=== PATIENT | female | born 1955 | race Caucasian/White ===

== ENCOUNTER 2018-01-16 18:00 | Inpatient (IN) | payer MEDICAID ==
[~2018-01-16] VITALS: Ht 160 cm; Wt 108.9 kg
[~2018-01-16 18:00] MED LIST: ASPI-1159 PO; ATOR40TA70 PO; CLON2TAB21 PO; FAMO20TA8 PO; FURO40TA5 PO; LEVO50TA PO; PANT40TA4 PO; SPIR50TA5 PO; SUCR1TAB PO
[2018-01-16] MEDS ORDERED: KETOROLAC 30MG/ML VIAL IV ONE (18:45)
[2018-01-16] MEDS ORDERED: ONDANSETRON HCL 4MG/2ML INJ IV ONE (18:45)
[2018-01-16 20:21] LABS: BASOPHILS % 0.7 % (0.0-2.0); EOSINOPHILS % 3.9 % (0.0-5.0); HEMATOCRIT. 36.7 % (36.0-48.0); HEMOGLOBIN. 12.4 g/dL (12.0-16.0); LYMPHOCYTES % 28.5 % (20.0-50.0); MEAN CORPUSCULAR HEMOGLOBIN 30.3 pg (28.0-32.0); MEAN CORPUSCULAR VOLUME 89.5 fL (81.0-99.0); MEAN PLATELET VOLUME 8.7 fl (7.4-10.4); MONOCYTES % 8.6 % (2.0-8.0); NEUTROPHILS % 58.3 % (40.0-76.0); PLATELET 214 x1000/uL (130-400); RED CELL DISTRIBUTION WIDTH 14.1 % (11.6-14.6)
[2018-01-16 20:27] LABS: CHLORIDE 108 mEq/L (98-107)
[2018-01-16 20:42] LABS: CLARITY URINE CLEAR (CLEAR); COLOR URINE YELLOW (YELLOW); KETONES URINE NEGATIVE (NEGATIVE); LEUKOCYTE ESTERASE URINE TRACE (NEGATIVE); NITRITE URINE NEGATIVE (NEGATIVE); OCCULT BLOOD URINE NEGATIVE (NEGATIVE); PH URINE 5.5 (4.5-8.0); PROTEIN URINE NEGATIVE (NEGATIVE); SPECIFIC GRAVITY URINE 1.002 (1.005-1.030); UROBILINOGEN URINE 0.2 E.U./dL (0.2-1.0)
[2018-01-16] MEDS ORDERED: GUAIFENESIN 200MG/10ML SUGAR FREE UDC PO PRN (21:45)
[2018-01-16] MEDS ORDERED: CLONIDINE 0.1MG TABLET PO PRN (21:45)
[2018-01-16] MEDS ORDERED: IPRATROPIUM/ALBUTEROL 0.5-3(2.5)MG/3ML NEB INH PRN (21:45)
[2018-01-16] MEDS ORDERED: ACETAMINOPHEN 325MG TABLET PO PRN (21:45)
[2018-01-16] MEDS ORDERED: ONDANSETRON HCL 4MG/2ML INJ IV PRN (21:45)
[2018-01-16] MEDS ORDERED: MAGNESIUM/ALUMINUM HYDROXIDE/SIMETHICONE 30ML UDC PO PRN (21:45)
[2018-01-16] MEDS ORDERED: HYDROCODONE/ACETAMINOPHEN 5/325MG TABLET PO PRN (21:45)
[2018-01-16] MEDS ORDERED: DOCUSATE SODIUM 100MG CAPSULE PO PRN (21:45)
[2018-01-16 23:13] LABS: CHLORIDE 107 mEq/L (98-107)
[2018-01-16 23:19] LABS: CREATINE KINASE 43 IU/L (26-192)
[2018-01-16 23:20] LABS: CREATINE KINASE MB FRACTION < 1.0 ng/mL (0.5-3.6)
[2018-01-17] VITALS (7 sets, daily range): BP systolic 99–126; BP diastolic 45–72
[2018-01-17] MEDS ORDERED: ASPIRIN 81MG EC TABLET PO SCH (09:00)
[2018-01-17 09:24] LABS: BASOPHILS % 0.6 % (0.0-2.0); EOSINOPHILS % 5.1 % (0.0-5.0); HEMATOCRIT. 36.6 % (36.0-48.0); HEMOGLOBIN. 12.1 g/dL (12.0-16.0); LYMPHOCYTES % 27.7 % (20.0-50.0); MEAN CORPUSCULAR HEMOGLOBIN 29.8 pg (28.0-32.0); MEAN CORPUSCULAR VOLUME 90.1 fL (81.0-99.0); MEAN PLATELET VOLUME 8.8 fl (7.4-10.4); MONOCYTES % 8.7 % (2.0-8.0); NEUTROPHILS % 57.9 % (40.0-76.0); PLATELET 198 x1000/uL (130-400); RED BLOOD CELL COUNT 4.07 mill/uL (4.2-5.4); RED CELL DISTRIBUTION WIDTH 14.1 % (11.6-14.6)
[2018-01-17 09:43] LABS: CREATINE KINASE 31 IU/L (26-192); CREATINE KINASE MB FRACTION < 1.0 ng/mL (0.5-3.6); HDL CHOLESTEROL 55 mg/dL (40-59); LDL CHOLESTEROL 44 mg/dL (5-100)
[2018-01-17] MEDS: ENOXAPARIN 30MG/0.3ML SYR SUBCUT SCH ×2 (09:46→20:50)
[2018-01-17 10:17] LABS: *AMPHETAMINES SCREEN URINE NEGATIVE (NEGATIVE); *BARBITURATES SCREEN URINE NEGATIVE (NEGATIVE); *BENZODIAZEPINES SCREEN URINE PRESUMTIVE POSITIVE (NEGATIVE)
[2018-01-17 10:18] LABS: *COCAINE SCREEN URINE NEGATIVE (NEGATIVE); CANNABINOID URINE SCREEN NEGATIVE (NEGATIVE); METHADONE URINE SCREEN NEGATIVE (NEGATIVE); OPIATES URINE SCREEN PRESUMTIVE POSITIVE (NEGATIVE); PHENCYCLIDINE URINE SCREEN NEGATIVE (NEGATIVE)
[2018-01-17] MEDS ORDERED: SPIRONOLACTONE 50MG TABLET PO SCH (11:30)
[2018-01-17 11:49] LABS: T4 FREE 1.14 ng/dL (0.76-1.46)
[2018-01-17] MEDS: FUROSEMIDE 40MG/4ML VIAL IVP SCH (11:51)
[2018-01-17] MEDS: SUCRALFATE 1G TABLET PO SCH ×3 (11:52→20:49)
[2018-01-17] MEDS: PANTOPRAZOLE 40MG DR TABLET PO SCH (11:52)
[2018-01-17] MEDS: SPIRONOLACTONE 50MG TABLET PO SCH (15:39)
[2018-01-17] MEDS ORDERED: DEXTROSE 50% WATER 50ML SYRINGE IV PRN (17:00)
[2018-01-17] MEDS: INSULIN LISPRO 100 UNITS/ML SUBCUT SCH ×2 (17:15→20:48)
[2018-01-17] MEDS: BLOOD SUGAR DIAGNOSTIC STRIP TEST SCH ×2 (17:39→20:48)
[2018-01-17] MEDS ORDERED: CLONAZEPAM 1MG TABLET PO PRN (19:15)
[2018-01-17] MEDS ORDERED: MEDICATION NOT ON FORMULARY EA (Clonazepam 2 MG) PO PRN (19:15)
[2018-01-17] MEDS ORDERED: ATORVASTATIN CALCIUM 40MG TABLET PO SCH (21:00)
[2018-01-18] VITALS (8 sets, daily range): BP systolic 96–144; BP diastolic 56–70
[2018-01-18] MEDS: INSULIN LISPRO 100 UNITS/ML SUBCUT SCH ×3 (06:09→17:54)
[2018-01-18] MEDS: BLOOD SUGAR DIAGNOSTIC STRIP TEST SCH ×3 (06:09→17:30)
[2018-01-18] MEDS: SUCRALFATE 1G TABLET PO SCH ×3 (06:10→17:30)
[2018-01-18] MEDS: PANTOPRAZOLE 40MG DR TABLET PO SCH (06:10)
[2018-01-18] MEDS ORDERED: LEVOTHYROXINE SODIUM 50MCG TABLET PO SCH (06:45)
[2018-01-18 07:30] LABS: BASOPHILS % 0.7 % (0.0-2.0); EOSINOPHILS % 5.1 % (0.0-5.0); HEMATOCRIT. 38.9 % (36.0-48.0); HEMOGLOBIN. 12.8 g/dL (12.0-16.0); LYMPHOCYTES % 28.5 % (20.0-50.0); MEAN CORPUSCULAR HEMOGLOBIN 29.6 pg (28.0-32.0); MEAN CORPUSCULAR VOLUME 89.7 fL (81.0-99.0); MEAN PLATELET VOLUME 9.3 fl (7.4-10.4); MONOCYTES % 8.3 % (2.0-8.0); NEUTROPHILS % 57.4 % (40.0-76.0); PLATELET 206 x1000/uL (130-400); RED BLOOD CELL COUNT 4.33 mill/uL (4.2-5.4); RED CELL DISTRIBUTION WIDTH 14.1 % (11.6-14.6)
[2018-01-18 07:35] LABS: CHLORIDE 104 mEq/L (98-107)
[2018-01-18] MEDS: FUROSEMIDE 40MG/4ML VIAL IVP SCH (08:41)
[2018-01-18] MEDS: SPIRONOLACTONE 50MG TABLET PO SCH (08:42)
[2018-01-18] MEDS: ENOXAPARIN 30MG/0.3ML SYR SUBCUT SCH (08:43)
[2018-01-18] MEDS ORDERED: ASPIRIN 81MG TABLET PO SCH (09:00)
== END 2018-01-18 20:45 | disposition home or self-care (01) | DRG 194 ==
LOC: ER 18:14 → 5WST 21:14 → EDBEDREQTM 21:49 → EDBEDREQ 21:49 → ENRESERV 01-17 00:06
PROVIDERS: ADMIT Internal Medicine; ATTEND Internal Medicine
DX: I11.0 Hypertensive heart disease with heart failure (principal); E87.8 Other disorders of electrolyte and fluid balance, not elsewhere classified; E44.0 Moderate protein-calorie malnutrition; E66.01 Morbid (severe) obesity due to excess calories; I50.33 Acute on chronic diastolic (congestive) heart failure; E03.9 Hypothyroidism, unspecified; E78.5 Hyperlipidemia, unspecified; E11.9 Type 2 diabetes mellitus without complications; E78.00 Pure hypercholesterolemia, unspecified; R10.9 Unspecified abdominal pain; R11.0 Nausea; F41.9 Anxiety disorder, unspecified; R07.89 Other chest pain; Z79.82 Long term (current) use of aspirin; Z79.84 Long term (current) use of oral hypoglycemic drugs; Z87.11 Personal history of peptic ulcer disease; Z68.41 Body mass index [BMI] 40.0-44.9, adult; Z91.041 Radiographic dye allergy status; Z79.899 Other long term (current) drug therapy
CPT/HCPCS: 36415; 71045; 74176; 80048; 80061; 80305; 82550; 82553; 82962; 83735; 83880; 84439; 84443; 84481; 84484; 93005; 93970; 96374; 96375; 97116; 97162; 97530; 99285; C1893; J1650; J1815; J1885; J1940; J2405

== ENCOUNTER 2018-04-04 13:01 | Inpatient (IN) | payer MEDICAID ==
[~2018-04-04] VITALS: Ht 157.5 cm; Wt 97.5 kg
[~2018-04-04 13:01] MED LIST changes: -FAMO20TA8 PO
[2018-04-04] MEDS ORDERED: ONDANSETRON HCL 4MG/2ML INJ IV STA (13:42)
[2018-04-04] MEDS ORDERED: MORPHINE SULFATE 4 MG/ML CPJ (NOT FOR IM USE) IV STA (13:42)
[2018-04-04] MEDS ORDERED: MORPHINE SULFATE 10 MG/ML CPJ IV NR (14:45)
[2018-04-04 14:48] LABS: CHLORIDE 105 mEq/L (98-107)
[2018-04-04 14:49] LABS: BASOPHILS % 0.6 % (0.0-2.0); HEMATOCRIT. 43.5 % (36.0-48.0); HEMOGLOBIN. 14.6 g/dL (12.0-16.0); LYMPHOCYTES % 27.2 % (20.0-50.0); MEAN CORPUSCULAR HEMOGLOBIN 29.5 pg (28.0-32.0); MEAN CORPUSCULAR VOLUME 87.8 fL (81.0-99.0); MEAN PLATELET VOLUME 9.1 fl (7.4-10.4); MONOCYTES % 6.7 % (2.0-8.0); NEUTROPHILS % 61.5 % (40.0-76.0); PLATELET 210 x1000/uL (130-400); PROTHROMBIN TIME 10.3 sec (9.1-11.1); RED BLOOD CELL COUNT 4.96 mill/uL (4.2-5.4); RED CELL DISTRIBUTION WIDTH 15.1 % (11.6-14.6)
[2018-04-04 18:01] LABS: CLARITY URINE CLEAR (CLEAR); COLOR URINE YELLOW (YELLOW); KETONES URINE NEGATIVE (NEGATIVE); LEUKOCYTE ESTERASE URINE TRACE (NEGATIVE); NITRITE URINE NEGATIVE (NEGATIVE); OCCULT BLOOD URINE NEGATIVE (NEGATIVE); PH URINE 7.5 (4.5-8.0); PROTEIN URINE NEGATIVE (NEGATIVE); SPECIFIC GRAVITY URINE 1.008 (1.005-1.030); UROBILINOGEN URINE 0.2 E.U./dL (0.2-1.0)
[2018-04-04] MEDS ORDERED: MORPHINE SULFATE 10 MG/ML CPJ IV ONE (19:00)
[2018-04-04] MEDS ORDERED: CLONIDINE 0.1MG TABLET PO PRN (19:30)
[2018-04-04] MEDS ORDERED: ACETAMINOPHEN 325MG TABLET PO PRN (19:30)
[2018-04-04] MEDS ORDERED: IPRATROPIUM/ALBUTEROL 0.5-3(2.5)MG/3ML NEB INH PRN (19:30)
[2018-04-04 23:30] VITALS: BP 90/63
[2018-04-05] VITALS: BP 90/51
[2018-04-05 04:00] VITALS: BP 104/70
[2018-04-05 06:23] LABS: BASOPHILS % 0.4 % (0.0-2.0); EOSINOPHILS % 4.4 % (0.0-5.0); HEMOGLOBIN. 12.6 g/dL (12.0-16.0); LYMPHOCYTES % 32.7 % (20.0-50.0); MEAN CORPUSCULAR HEMOGLOBIN 29.6 pg (28.0-32.0); MEAN CORPUSCULAR VOLUME 89.3 fL (81.0-99.0); MEAN PLATELET VOLUME 8.8 fl (7.4-10.4); MONOCYTES % 8.8 % (2.0-8.0); NEUTROPHILS % 53.7 % (40.0-76.0); PLATELET 150 x1000/uL (130-400); RED BLOOD CELL COUNT 4.26 mill/uL (4.2-5.4); RED CELL DISTRIBUTION WIDTH 14.9 % (11.6-14.6)
[2018-04-05 06:36] LABS: CHLORIDE 107 mEq/L (98-107)
[2018-04-05 06:50] LABS: PHOSPHORUS 5.1 mg/dL (2.5-4.9)
[2018-04-05 06:51] LABS: LDL CHOLESTEROL 68 mg/dL (5-100)
[2018-04-05 06:53] LABS: HDL CHOLESTEROL 59 mg/dL (40-59)
[2018-04-05 10:18] LABS: *BARBITURATES SCREEN URINE NEGATIVE (NEGATIVE); *BENZODIAZEPINES SCREEN URINE PRESUMTIVE POSITIVE (NEGATIVE); *COCAINE SCREEN URINE NEGATIVE (NEGATIVE); METHADONE URINE SCREEN NEGATIVE (NEGATIVE); OPIATES URINE SCREEN PRESUMTIVE POSITIVE (NEGATIVE)
[2018-04-05 10:19] LABS: *AMPHETAMINES SCREEN URINE NEGATIVE (NEGATIVE); CANNABINOID URINE SCREEN NEGATIVE (NEGATIVE); PHENCYCLIDINE URINE SCREEN NEGATIVE (NEGATIVE)
[2018-04-05] MEDS ORDERED: TRAMADOL 50MG TABLET PO PRN (11:00)
[2018-04-05 12:00] VITALS: BP 98/51
[2018-04-05] MEDS: ONDANSETRON HCL 4MG/2ML INJ IV PRN ×2 (12:33→18:32)
[2018-04-05] MEDS: HYDROCODONE/ACETAMINOPHEN 5/325MG TABLET PO PRN ×2 (12:39→22:41)
[2018-04-05] MEDS: CLONAZEPAM 1MG TABLET PO SCH ×2 (14:25→22:40)
[2018-04-05] MEDS: PANTOPRAZOLE 40MG DR TABLET PO SCH (14:26)
[2018-04-05] MEDS: LEVOTHYROXINE SODIUM 50MCG TABLET PO SCH (14:26)
[2018-04-05] MEDS: SPIRONOLACTONE 50MG TABLET PO SCH (14:28)
[2018-04-05] MEDS: ASPIRIN 81MG TABLET PO SCH (14:29)
[2018-04-05] MEDS: FUROSEMIDE 40MG TABLET PO SCH (14:29)
[2018-04-05] MEDS: CYCLOBENZAPRINE 10MG TABLET PO SCH ×2 (14:34→22:49)
[2018-04-05] MEDS: SUCRALFATE 1 G/10 ML UDC PO SCH ×3 (14:34→22:40)
[2018-04-05 16:00] VITALS: BP 95/57
[2018-04-05 20:00] VITALS: BP 101/70
[2018-04-05] MEDS: ATORVASTATIN CALCIUM 40MG TABLET PO SCH (22:40)
[2018-04-06] VITALS: BP 100/52
[2018-04-06 04:00] VITALS: BP 101/60
[2018-04-06] MEDS: HYDROCODONE/ACETAMINOPHEN 5/325MG TABLET PO PRN ×3 (05:30→21:50)
[2018-04-06] MEDS: SUCRALFATE 1 G/10 ML UDC PO SCH ×4 (05:39→20:50)
[2018-04-06] MEDS: CYCLOBENZAPRINE 10MG TABLET PO SCH ×3 (05:40→21:50)
[2018-04-06] MEDS: LEVOTHYROXINE SODIUM 50MCG TABLET PO SCH (05:40)
[2018-04-06] MEDS: PANTOPRAZOLE 40MG DR TABLET PO SCH (05:40)
[2018-04-06 08:00] VITALS: BP 90/51
[2018-04-06 08:03] LABS: BASOPHILS % 0.8 % (0.0-2.0); EOSINOPHILS % 4.5 % (0.0-5.0); HEMATOCRIT. 41.6 % (36.0-48.0); HEMOGLOBIN. 13.6 g/dL (12.0-16.0); LYMPHOCYTES % 31.4 % (20.0-50.0); MEAN CORPUSCULAR HEMOGLOBIN 29.4 pg (28.0-32.0); MEAN CORPUSCULAR VOLUME 89.7 fL (81.0-99.0); MEAN PLATELET VOLUME 9.1 fl (7.4-10.4); MONOCYTES % 8.7 % (2.0-8.0); NEUTROPHILS % 54.6 % (40.0-76.0); PLATELET 186 x1000/uL (130-400); RED BLOOD CELL COUNT 4.64 mill/uL (4.2-5.4); RED CELL DISTRIBUTION WIDTH 15.2 % (11.6-14.6)
[2018-04-06] MEDS: ASPIRIN 81MG TABLET PO SCH (09:08)
[2018-04-06] MEDS: SPIRONOLACTONE 50MG TABLET PO SCH (09:08)
[2018-04-06] MEDS: CLONAZEPAM 1MG TABLET PO SCH ×2 (09:08→20:50)
[2018-04-06] MEDS: FUROSEMIDE 40MG TABLET PO SCH (09:10)
[2018-04-06 10:16] LABS: CHLORIDE 104 mEq/L (98-107)
[2018-04-06 12:40] VITALS: BP 98/53
[2018-04-06] MEDS ORDERED: DEXTROSE 50% WATER 50ML SYRINGE IV PRN (13:15)
[2018-04-06] MEDS ORDERED: MAGNESIUM HYDROXIDE 400MG/5ML 30ML UDC PO PRN (15:00)
[2018-04-06] MEDS ORDERED: BISACODYL 5MG TABLET PO PRN (15:00)
[2018-04-06 16:39] VITALS: BP 105/72
[2018-04-06] MEDS: BLOOD SUGAR DIAGNOSTIC STRIP TEST SCH ×2 (17:55→20:50)
[2018-04-06] MEDS: DOCUSATE SODIUM 100MG CAPSULE PO SCH (18:00)
[2018-04-06] MEDS: CEFTRIAXONE 1 G PREMIX 50 ML IV SCH (18:00)
[2018-04-06] MEDS: INSULIN LISPRO 100 UNITS/ML SUBCUT SCH ×2 (18:01→20:50)
[2018-04-06 20:00] VITALS: BP 101/60
[2018-04-06] MEDS: ATORVASTATIN CALCIUM 40MG TABLET PO SCH (20:49)
[2018-04-07] VITALS: BP 103/51
[2018-04-07 04:00] VITALS: BP 119/81
[2018-04-07] MEDS: HYDROCODONE/ACETAMINOPHEN 5/325MG TABLET PO PRN ×3 (04:04→17:16)
[2018-04-07] MEDS: LEVOTHYROXINE SODIUM 50MCG TABLET PO SCH (06:20)
[2018-04-07] MEDS: SUCRALFATE 1 G/10 ML UDC PO SCH ×4 (06:20→21:04)
[2018-04-07] MEDS: CYCLOBENZAPRINE 10MG TABLET PO SCH ×3 (06:20→21:19)
[2018-04-07] MEDS: BLOOD SUGAR DIAGNOSTIC STRIP TEST SCH ×4 (06:20→21:10)
[2018-04-07] MEDS: INSULIN LISPRO 100 UNITS/ML SUBCUT SCH ×4 (06:23→21:22)
[2018-04-07 08:00] VITALS: BP 143/97
[2018-04-07] MEDS: FUROSEMIDE 40MG TABLET PO SCH (09:13)
[2018-04-07] MEDS: SPIRONOLACTONE 50MG TABLET PO SCH (09:13)
[2018-04-07] MEDS: CLONAZEPAM 1MG TABLET PO SCH ×2 (09:13→21:03)
[2018-04-07] MEDS: ASPIRIN 81MG TABLET PO SCH (09:13)
[2018-04-07] MEDS: DOCUSATE SODIUM 100MG CAPSULE PO SCH ×2 (09:13→17:16)
[2018-04-07] MEDS: FAMOTIDINE 20MG TABLET PO SCH ×2 (09:13→21:03)
[2018-04-07 12:19] VITALS: BP 117/83
[2018-04-07 16:56] VITALS: BP 111/66
[2018-04-07] MEDS ORDERED: LACTULOSE 20G/30ML UDC PO PRN (17:15)
[2018-04-07] MEDS: CEFTRIAXONE 1 G PREMIX 50 ML IV SCH (17:16)
[2018-04-07 20:00] VITALS: BP 152/98
[2018-04-07] MEDS: KETOROLAC 30MG/ML VIAL IV PRN (21:03)
[2018-04-07] MEDS: ATORVASTATIN CALCIUM 40MG TABLET PO SCH (21:10)
[2018-04-08] VITALS: BP 107/72
[2018-04-08 04:00] VITALS: BP 102/62
[2018-04-08] MEDS: BLOOD SUGAR DIAGNOSTIC STRIP TEST SCH ×4 (06:34→21:36)
[2018-04-08] MEDS: INSULIN LISPRO 100 UNITS/ML SUBCUT SCH ×4 (06:34→21:39)
[2018-04-08] MEDS: CYCLOBENZAPRINE 10MG TABLET PO SCH ×3 (06:38→21:36)
[2018-04-08] MEDS: SUCRALFATE 1 G/10 ML UDC PO SCH ×4 (06:39→21:35)
[2018-04-08] MEDS: LEVOTHYROXINE SODIUM 50MCG TABLET PO SCH (06:40)
[2018-04-08 07:50] LABS: BASOPHILS % 0.5 % (0.0-2.0); EOSINOPHILS % 2.6 % (0.0-5.0); HEMATOCRIT. 43.7 % (36.0-48.0); HEMOGLOBIN. 14.3 g/dL (12.0-16.0); LYMPHOCYTES % 13.6 % (20.0-50.0); MEAN CORPUSCULAR HEMOGLOBIN 29.3 pg (28.0-32.0); MEAN CORPUSCULAR VOLUME 89.7 fL (81.0-99.0); MEAN PLATELET VOLUME 9.3 fl (7.4-10.4); MONOCYTES % 6.1 % (2.0-8.0); NEUTROPHILS % 77.2 % (40.0-76.0); PLATELET 146 x1000/uL (130-400); RED BLOOD CELL COUNT 4.87 mill/uL (4.2-5.4); RED CELL DISTRIBUTION WIDTH 15.2 % (11.6-14.6)
[2018-04-08 08:08] LABS: CHLORIDE 102 mEq/L (98-107)
[2018-04-08] MEDS: FAMOTIDINE 20MG TABLET PO SCH ×2 (09:23→21:36)
[2018-04-08] MEDS: ASPIRIN 81MG TABLET PO SCH (09:26)
[2018-04-08] MEDS: SPIRONOLACTONE 50MG TABLET PO SCH (09:26)
[2018-04-08] MEDS: DOCUSATE SODIUM 100MG CAPSULE PO SCH ×2 (09:26→18:11)
[2018-04-08] MEDS: CLONAZEPAM 1MG TABLET PO SCH ×2 (09:32→21:36)
[2018-04-08 12:00] VITALS: BP 99/63
[2018-04-08 16:00] VITALS: BP 108/58
[2018-04-08] MEDS: CEFTRIAXONE 1 G PREMIX 50 ML IV SCH (18:11)
[2018-04-08 20:00] VITALS: BP 131/83
[2018-04-08 20:05] LABS: CLARITY URINE CLEAR (CLEAR); COLOR URINE YELLOW (YELLOW); KETONES URINE NEGATIVE (NEGATIVE); LEUKOCYTE ESTERASE URINE NEGATIVE (NEGATIVE); NITRITE URINE NEGATIVE (NEGATIVE); OCCULT BLOOD URINE NEGATIVE (NEGATIVE); PH URINE 6.5 (4.5-8.0); PROTEIN URINE NEGATIVE (NEGATIVE); SPECIFIC GRAVITY URINE 1.006 (1.005-1.030); UROBILINOGEN URINE 0.2 E.U./dL (0.2-1.0)
[2018-04-08] MEDS: HYDROCODONE/ACETAMINOPHEN 5/325MG TABLET PO PRN (21:07)
[2018-04-08] MEDS: ATORVASTATIN CALCIUM 40MG TABLET PO SCH (21:40)
[2018-04-09] VITALS: BP 124/69
[2018-04-09] MEDS: KETOROLAC 30MG/ML VIAL IV PRN ×2 (00:14→12:33)
[2018-04-09 04:00] VITALS: BP 106/58
[2018-04-09] MEDS: CYCLOBENZAPRINE 10MG TABLET PO SCH (06:11)
[2018-04-09] MEDS: SUCRALFATE 1 G/10 ML UDC PO SCH ×2 (06:11→11:31)
[2018-04-09] MEDS: LEVOTHYROXINE SODIUM 50MCG TABLET PO SCH (06:11)
[2018-04-09] MEDS: INSULIN LISPRO 100 UNITS/ML SUBCUT SCH ×2 (06:13→11:43)
[2018-04-09] MEDS: BLOOD SUGAR DIAGNOSTIC STRIP TEST SCH ×2 (06:13→11:43)
[2018-04-09 07:13] LABS: BASOPHILS % 0.6 % (0.0-2.0); EOSINOPHILS % 6.4 % (0.0-5.0); HEMATOCRIT. 37.3 % (36.0-48.0); HEMOGLOBIN. 12.4 g/dL (12.0-16.0); LYMPHOCYTES % 30.1 % (20.0-50.0); MEAN CORPUSCULAR HEMOGLOBIN 29.8 pg (28.0-32.0); MEAN CORPUSCULAR VOLUME 89.3 fL (81.0-99.0); MEAN PLATELET VOLUME 9.1 fl (7.4-10.4); MONOCYTES % 7.9 % (2.0-8.0); PLATELET 144 x1000/uL (130-400); RED BLOOD CELL COUNT 4.17 mill/uL (4.2-5.4); RED CELL DISTRIBUTION WIDTH 15.5 % (11.6-14.6)
[2018-04-09 07:21] LABS: CHLORIDE 106 mEq/L (98-107)
[2018-04-09 08:00] VITALS: BP 106/70
[2018-04-09] MEDS: SPIRONOLACTONE 50MG TABLET PO SCH (09:06)
[2018-04-09] MEDS: ASPIRIN 81MG TABLET PO SCH (09:06)
[2018-04-09] MEDS: FAMOTIDINE 20MG TABLET PO SCH (09:06)
[2018-04-09] MEDS: CLONAZEPAM 1MG TABLET PO SCH (09:06)
[2018-04-09] MEDS: DOCUSATE SODIUM 100MG CAPSULE PO SCH (09:06)
[2018-04-09] MEDS ORDERED: SULF1TAB48 MT (12:51)
[2018-04-09] MEDS ORDERED: CYCL10TA7 PO (12:51)
[2018-04-09 13:07] VITALS: BP 112/63
== END 2018-04-09 17:10 | disposition home or self-care (01) | DRG 463 ==
LOC: ER 13:01 → 8WST 18:32 → EDBEDREQ 18:34 → ENRESERV 21:45
PROVIDERS: ADMIT Internal Medicine; ATTEND Internal Medicine
DX: N39.0 Urinary tract infection, site not specified (principal); I11.0 Hypertensive heart disease with heart failure; E44.0 Moderate protein-calorie malnutrition; E66.01 Morbid (severe) obesity due to excess calories; I50.9 Heart failure, unspecified; E83.51 Hypocalcemia; M54.9 Dorsalgia, unspecified; E03.9 Hypothyroidism, unspecified; E11.9 Type 2 diabetes mellitus without complications; K59.00 Constipation, unspecified; E78.5 Hyperlipidemia, unspecified; F41.9 Anxiety disorder, unspecified; I87.2 Venous insufficiency (chronic) (peripheral); K44.9 Diaphragmatic hernia without obstruction or gangrene; Z79.82 Long term (current) use of aspirin; Z79.84 Long term (current) use of oral hypoglycemic drugs; Z90.49 Acquired absence of other specified parts of digestive tract; Z90.710 Acquired absence of both cervix and uterus; Z87.11 Personal history of peptic ulcer disease; Z68.39 Body mass index [BMI] 39.0-39.9, adult; Z91.041 Radiographic dye allergy status; Z79.899 Other long term (current) drug therapy
CPT/HCPCS: 36415; 71045; 74176; 80048; 80061; 80305; 82962; 83036; 83735; 83880; 84100; 84484; 93005; 93970; 96374; 96375; 99285; C1893; J0696; J1815; J1885; J2270; J2405; J7050

== ENCOUNTER 2018-05-12 08:10 | Inpatient (IN) | payer MEDICAID ==
[~2018-05-12] VITALS: Ht 157.5 cm; Wt 99.0 kg
[~2018-05-12 08:10] MED LIST changes: +CYCL10TA7 PO; -FURO40TA5 PO; +SULF1TAB48 MT
[2018-05-12 09:53] LABS: EOSINOPHILS % 4.3 % (0.0-5.0); HEMATOCRIT. 39.9 % (36.0-48.0); HEMOGLOBIN. 13.1 g/dL (12.0-16.0); MEAN CORPUSCULAR HEMOGLOBIN 29.6 pg (28.0-32.0); MEAN PLATELET VOLUME 9.5 fl (7.4-10.4); MONOCYTES % 7.9 % (2.0-8.0); NEUTROPHILS % 60.8 % (40.0-76.0); PLATELET 236 x1000/uL (130-400); RED BLOOD CELL COUNT 4.43 mill/uL (4.2-5.4); RED CELL DISTRIBUTION WIDTH 15.4 % (11.6-14.6)
[2018-05-12 09:59] LABS: CHLORIDE 108 mEq/L (98-107)
[2018-05-12] MEDS ORDERED: HYDROCODONE/ACETAMINOPHEN 5/325MG TABLET PO ONE (11:45)
[2018-05-12] MEDS ORDERED: ASPIRIN 325MG EC TABLET PO ONE (12:30)
[2018-05-12] MEDS ORDERED: FAMOTIDINE 20MG TABLET PO NR (12:30)
[2018-05-12] MEDS ORDERED: MAGNESIUM/ALUMINUM HYDROXIDE/SIMETHICONE 30ML UDC PO PRN (13:45)
[2018-05-12] MEDS ORDERED: DOCUSATE SODIUM 100MG CAPSULE PO PRN (13:45)
[2018-05-12] MEDS ORDERED: IPRATROPIUM/ALBUTEROL 0.5-3(2.5)MG/3ML NEB INH PRN (13:45)
[2018-05-12] MEDS ORDERED: ACETAMINOPHEN 325MG TABLET PO PRN (13:45)
[2018-05-12] MEDS ORDERED: GUAIFENESIN 200MG/10ML SUGAR FREE UDC PO PRN (13:45)
[2018-05-12] MEDS ORDERED: ONDANSETRON HCL 4MG/2ML INJ IV PRN (13:45)
[2018-05-12] MEDS ORDERED: HYDROCODONE/ACETAMINOPHEN 5/325MG TABLET PO PRN (13:45)
[2018-05-12] MEDS ORDERED: CLONIDINE 0.1MG TABLET PO PRN (13:45)
[2018-05-12] MEDS ORDERED: DIPHENHYDRAMINE 50MG/ML VIAL IV PRN (13:45)
[2018-05-12 14:14] LABS: PHOSPHORUS 4.1 mg/dL (2.5-4.9)
[2018-05-12 17:47] LABS: CREATINE KINASE 43 IU/L (26-192)
[2018-05-12] MEDS ORDERED: ENOXAPARIN 40MG/0.4ML SYR SUBCUT NR (21:00)
[2018-05-12] MEDS ORDERED: ENOXAPARIN 30MG/0.3ML SYR SUBCUT NR (21:00)
[2018-05-12 22:00] VITALS: BP 120/69
[2018-05-12 23:38] LABS: CREATINE KINASE 50 IU/L (26-192)
[2018-05-13] MEDS ORDERED: MEDICATION NOT ON FORMULARY EA (Clonazepam 2 MG) PO PRN (03:00)
[2018-05-13 04:00] VITALS: BP 93/49
[2018-05-13] MEDS ORDERED: DEXTROSE 50% WATER 50ML SYRINGE IV PRN (04:30)
[2018-05-13] MEDS ORDERED: CLON2TAB11 PO (05:54)
[2018-05-13] MEDS ORDERED: MEDICATION NOT ON FORMULARY EA (Clonazepam 2 MG) PO SCH (06:00)
[2018-05-13] MEDS: BLOOD SUGAR DIAGNOSTIC STRIP TEST SCH ×2 (06:37→12:11)
[2018-05-13] MEDS: INSULIN LISPRO 100 UNITS/ML SUBCUT SCH ×2 (07:50→12:11)
[2018-05-13 08:00] VITALS: BP 102/66
[2018-05-13] MEDS ORDERED: LEVOTHYROXINE SODIUM 50MCG TABLET PO SCH (08:45)
[2018-05-13] MEDS ORDERED: MEDICATION NOT ON FORMULARY EA (Pantoprazole Sodium 40 MG) PO SCH (08:45)
[2018-05-13] MEDS ORDERED: PANTOPRAZOLE 40MG DR TABLET PO SCH (08:49)
[2018-05-13] MEDS ORDERED: ENOXAPARIN 30MG/0.3ML SYR SUBCUT SCH (09:00)
[2018-05-13] MEDS ORDERED: CLONAZEPAM 1MG TABLET PO SCH (09:00)
[2018-05-13 12:00] VITALS: BP 101/54
[2018-05-13 15:45] LABS: BASOPHILS % 0.7 % (0.0-2.0); EOSINOPHILS % 4.9 % (0.0-5.0); HEMATOCRIT. 38.9 % (36.0-48.0); HEMOGLOBIN. 12.8 g/dL (12.0-16.0); LYMPHOCYTES % 27.8 % (20.0-50.0); MEAN CORPUSCULAR HEMOGLOBIN 29.8 pg (28.0-32.0); MEAN CORPUSCULAR VOLUME 90.1 fL (81.0-99.0); MEAN PLATELET VOLUME 9.2 fl (7.4-10.4); MONOCYTES % 6.8 % (2.0-8.0); NEUTROPHILS % 59.8 % (40.0-76.0); PLATELET 208 x1000/uL (130-400); RED BLOOD CELL COUNT 4.31 mill/uL (4.2-5.4); RED CELL DISTRIBUTION WIDTH 14.9 % (11.6-14.6)
[2018-05-13 15:47] LABS: CHLORIDE 106 mEq/L (98-107)
[2018-05-13 15:57] LABS: LDL CHOLESTEROL 64 mg/dL (5-100)
[2018-05-13 15:59] LABS: HDL CHOLESTEROL 59 mg/dL (40-59)
[2018-05-13 16:00] VITALS: BP 94/47
[2018-05-13 18:35] VITALS: BP 18/94
== END 2018-05-13 19:00 | disposition home or self-care (01) | DRG 203 ==
LOC: ER 08:10 → 6WST 12:32 → ENRESERV 20:09
PROVIDERS: ADMIT Internal Medicine; ATTEND Internal Medicine
DX: R07.89 Other chest pain (principal); E66.01 Morbid (severe) obesity due to excess calories; I11.9 Hypertensive heart disease without heart failure; K21.9 Gastro-esophageal reflux disease without esophagitis; K29.70 Gastritis, unspecified, without bleeding; E03.9 Hypothyroidism, unspecified; E11.9 Type 2 diabetes mellitus without complications; F41.9 Anxiety disorder, unspecified; R79.1 Abnormal coagulation profile; Z90.710 Acquired absence of both cervix and uterus; Z68.39 Body mass index [BMI] 39.0-39.9, adult; Z91.048 Other nonmedicinal substance allergy status
CPT/HCPCS: 36415; 71045; 78582; 80061; 82550; 82962; 83036; 83735; 83880; 84100; 84443; 84484; 85379; 93005; 93306; 93970; 97162; 97166; 99285; A9558; J1650

== ENCOUNTER 2018-06-08 07:42 | Emergency (ER) | payer MEDICAID ==
[~2018-06-08] VITALS: Ht 165.1 cm; Wt 91.0 kg
[~2018-06-08 07:42] MED LIST changes: +CLON2TAB11 PO; -CLON2TAB21 PO; -SULF1TAB48 MT
[2018-06-08 11:08] LABS: BASOPHILS % 0.8 % (0.0-2.0); EOSINOPHILS % 7.9 % (0.0-5.0); HEMATOCRIT. 37.7 % (36.0-48.0); HEMOGLOBIN. 12.4 g/dL (12.0-16.0); LYMPHOCYTES % 28.6 % (20.0-50.0); MEAN CORPUSCULAR HEMOGLOBIN 29.7 pg (28.0-32.0); MEAN CORPUSCULAR VOLUME 90.4 fL (81.0-99.0); MEAN PLATELET VOLUME 8.8 fl (7.4-10.4); MONOCYTES % 12.6 % (2.0-8.0); NEUTROPHILS % 50.1 % (40.0-76.0); PLATELET 216 x1000/uL (130-400); RED BLOOD CELL COUNT 4.17 mill/uL (4.2-5.4)
[2018-06-08 11:15] LABS: CHLORIDE 111 mEq/L (98-107)
[2018-06-08 12:17] VITALS: BP 128/74
== END 2018-06-08 12:18 | disposition home or self-care (01) ==
LOC: ER 07:42 → CANBEDREQ 15:31
DX: R05 Cough (principal); E11.9 Type 2 diabetes mellitus without complications; J45.909 Unspecified asthma, uncomplicated; E03.9 Hypothyroidism, unspecified; Z90.710 Acquired absence of both cervix and uterus; Z91.041 Radiographic dye allergy status
CPT/HCPCS: 36415; 71045; 80053; 83880; 84484; 85025; 87040; 93005; 99284; Z7610